=== PATIENT | female | born 1960 | race Caucasian/White ===

== ENCOUNTER 2016-07-30 17:18 | Emergency (ER) | payer OTHER ==
[2016-07-30] MEDS ORDERED: IOPAMIDOL 370 (76%) IV.SOLN 150 ML IV ONE (17:19)
--- NOTE | 2016-07-30 19:41 | US ---
Name: YOLANDE CASTRO Exam: Gallbladder Ultrasound Comparison: None Clinical History: Right upper quadrant pain and back pain Findings: Ultrasound of the gallbladder was performed. Gallbladder is normal size at 5.4 cm in greatest dimension and 2.9 cm in diameter. Gallbladder wall is normal caliber 2 mm. There is no sludge or stones and no pericholecystic fluid. Ultrasound Buitrago sign is negative. Common bile duct is 3.7 mm. Impression: Normal Gallbladder Ultrasound Note: The above report was uploaded to [facility]'s electronic medical records system at 1937 hours.
[2016-07-30 20:33] LABS: PH,URINE 6.5 (5.0-8.0); URINE APPEARANCE CLEAR; URINE BILIRUBIN NEGATIVE (NEGATIVE); URINE BLOOD NEGATIVE (NEGATIVE); URINE COLOR YELLOW; URINE GLUCOSE (UA) NEGATIVE (NEGATIVE); URINE LEUKOCYTE ESTERASE NEGATIVE (NEGATIVE); URINE NITRITE NEGATIVE (NEGATIVE); URINE PROTEIN NEGATIVE (NEGATIVE); URINE UROBILINOGEN NORMAL (0-1 mg/dl)
[2016-07-30 20:35] LABS: HCG,QUALITATIVE URINE NEGATIVE
[2016-07-30 21:01] LABS: ABSOLUTE NEUTROPHIL COUNT 4.1 K/mm3 (1.8-7.7); BASO # 0.1 K/mm3 (0.0-0.2); BASO % 1.1 % (0.2-1.0); EOS # 0.3 (0.0-0.5); EOS % 4.6 % (0.9-2.9); HEMATOCRIT 38.5 % (37.0-47.0); HEMOGLOBIN 12.6 gm/l (12.0-16.0); IMM NEUT% 0.5 % (0-1); LYMPH # 0.6 (1.0-4.8); LYMPH % 11.2 % (15-45); MEAN CORPUSCULAR HEMOGLOBIN 30.4 pg (27.0-31.0); MEAN CORPUSCULAR HGB CONC 32.7 g/dl (33.0-37.0); MONO # 0.6 (0.0-0.8); NEUT % 72.6 % (43-75); PLATELET COUNT 259 K/mm3 (130-400); RED CELL DISTRIBUTION WIDTH 13.2 % (11.5-14.5)
[2016-07-30 21:14] LABS: ALB/GLOB RATIO 1.1 (>1.0); ALBUMIN 3.9 gm/dL (3.5-5.7); CALCIUM 9.9 mg/dL (8.6-10.3); MAGNESIUM 2.1 mg/dL (1.9-2.7)
--- NOTE | 2016-07-30 22:12 | CT ---
Name: YOLANDE ACSTRO Exam: CT angiogram chest and CT abdomen pelvis with contrast Comparison: None Clinical history: Right upper quadrant pain PROCEDURE: Helical CT using multidetector technique was applied to the chest during rapid intravenous ministration 150 cc of [id number]. During the portal venous phase of imaging, helical CT was continued through the abdomen and pelvis. No oral contrast was given. MIP reconstructions of the chest are submitted. Findings: CT angiogram chest: Heart is enlarged. There is no pericardial effusion. Aorta is normal caliber and there is a normal 3 great vessel arrangement. Injection was made via the right. Limited views the thyroid gland are normal. There is no suspicious axillary, mediastinal or hilar adenopathy. There is no pulmonary embolus. Large airways are clear. Mild bilateral atelectasis is present. There is a 5.8 mm noncalcified pulmonary nodule within the right lung base. Old exams should be obtained for comparison. If none are available and if the patient is at increased risk for developing lung cancer, repeat CT in 6 months is recommended. If there is no increased risk, repeat CT chest in one year is recommended. There is no pleural effusion or pneumothorax. Multilevel degenerative disease of the spine is present. CT ABDOMEN: Fatty liver changes are present. The gallbladder is not distended. There is no suspicious biliary dilation. Pancreas, spleen, adrenal glands, aorta, IVC and portal vein are normal. There is a 1.9 cm left renal cyst. There are several 2.4 cm and less right renal cyst. Small right renal cortical scars are present. There is no calculus or hydronephrosis. There is a small hiatal hernia. Small bowel is nondilated. There is a moderate amount of stranding within the peritoneal fat in the right upper quadrant adjacent to the liver, gallbladder and the hepatic flexure of the colon. The colon is thick-walled but under distended in this region. There is also a small amount of stranding within the fat extrinsic to the anterior abdominal wall musculature. Differential considerations include recent trauma, fatty infarct and colitis. There is no free air, free fluid or suspicious adenopathy. Fat filled umbilical hernia is present. There are degenerative changes of the lumbar spine at L5-S1. CT PELVIS: Bladder is normal. Uterus is absent. Small ovaries are thought to be present. Sigmoid colon is redundant but otherwise normal. Small bowel and appendix are normal. There is no free air, free fluid or suspicious adenopathy. Left fat filled inguinal hernia is present. Impression: 1. No pulmonary embolus 2. Moderate amount of stranding of the perineal fat in the right upper quadrant. Since there is stranding of the subcutaneous fat overlying the right upper quadrant, recent trauma must be considered. Other considerations include fatty infarction and less likely colitis. 3. 5.8 mm noncalcified right lower lobe pulmonary nodule. Please see above comments 4. Normal appendix. There is no small bowel obstruction 5. Fat filled left inguinal hernia and umbilical hernia. There is a small hiatal hernia is well. 6. Bilateral renal cysts 7. Absent uterus Note: The above report was uploaded to [facility]'s electronic medical records system at 2206 hours.
--- NOTE | 2016-07-31 08:11 | RAD ---
History: Right lower chest pain. Comparison: None. Technique: 2 views Findings: The soft tissue and bony structures are appropriate. The heart size is borderline prominent for technique. Minimal left basilar atelectasis or scarring is present. There is no effusion or pneumothorax visualized. The hilar and mediastinal structures are intact. Impression: 1. Borderline cardiac size. 2. Minimal linear left basilar atelectasis or scarring.
== END 2016-07-30 17:23 | disposition home or self-care (01) ==
LOC: ED 17:18
DX: K52.9 Noninfective gastroenteritis and colitis, unspecified (principal); R91.1 Solitary pulmonary nodule; I49.9 Cardiac arrhythmia, unspecified; I48.91 Unspecified atrial fibrillation; M06.9 Rheumatoid arthritis, unspecified; K76.9 Liver disease, unspecified; K75.4 Autoimmune hepatitis; K74.60 Unspecified cirrhosis of liver; Z79.899 Other long term (current) drug therapy; Z88.8 Allergy status to other drugs, medicaments and biological substances
CPT/HCPCS: 83605; 83690; 85379; 81025; 85025; 80053; 83735; 81003; 84484; 71020; 74177; 71275; 76705; 99284 ×2; 93005; Q9967